=== PATIENT | female | born 1955 | race Two or more races ===

== ENCOUNTER → 2020-05-29 14:00 | Outpatient (CLI) | payer SELFPAY ==
--- NOTE | 2020-05-29 14:00 | CER_PTH ---
PATIENT: FROYLAN ALMAGUER LOC: [facility] U#:[id number] AGE/SX: 70/F ROOM: RE05/29/[address]: Dr. Terry Gonzalez MD : 1955 BED: DIS: SPEC #: [id number] RECD: 05/30/20 09:52 STATUS: BRIAN JANES #: [id number] ANTHONY: 05/29/20 14:[address]: Terry Gonzalez DEPT: SURGICAL PATHOLOGY RECD BY: Kiarra Rios Tissues: Uterine cervix, NOS Procedures: Surgery Specimen Level IV HEADER OPERATION: Cervical polyp removal PRE-OP DIAGNOSIS: N84.1 TISSUE SUBMITTED: Cervical polyp MICROSCOPIC DIAGNOSIS Cervical polyp, polypectomy: Fragments of benign endocervical polyp, inflamed. AM:dav 05/31/20 MICROSCOPIC DESCRIPTION Slides are reviewed. GROSS DESCRIPTION Received in fixative is one container labeled with the patient's name and designated cervical polyp. The specimen consists of multiple irregular fragments of bal tissue that in aggregate measure 1.5 x 1 x 0.2 cm. The specimen is totally submitted in one cassette. / AM:dav 05/30/20 TC:5 CPT: 72052
[2020-06-01 16:27] LABS: HPV Reflexed? NOT INDICATED
== END ==
PROVIDERS: Visit Provider Obstetrics & Gynecology
DX: Z12.4 Encounter for screening for malignant neoplasm of cervix (principal); N84.1 Polyp of cervix uteri
CPT/HCPCS: 88175; 88305; G0145

== ENCOUNTER → 2021-10-29 | Outpatient (CLI) | payer SELFPAY ==
[2021-11-04 20:27] LABS: HPV Reflexed? NOT INDICATED
== END | disposition home or self-care (01) ==
LOC: LABSPEC 16:23
PROVIDERS: Visit Provider Obstetrics & Gynecology
DX: Z12.4 Encounter for screening for malignant neoplasm of cervix (principal)
CPT/HCPCS: 88175; G0145